=== PATIENT | male | born 1935 | race Caucasian/White ===

== ENCOUNTER 2019-05-05 14:45 | Outpatient (CLI) | payer OTHER, SELFPAY ==
--- NOTE | 2019-05-05 14:49 | US_ITS ---
WS: [id number] ULTRASOUND SOFT TISSUES RIGHT neck HISTORY: LYMPHADENOPATHY COMPARISON: None available. TECHNIQUE: 2-D and color Doppler imaging is submitted. Numerous hypoechoic masses are identified in the RIGHT neck in the region of the RIGHT submandibular gland. Largest mass measures 1.6 x 0.9 x 1.3 cm. There are a few septations and low-level echoes and some mild increased vascularity in the periphery. Loss of the normal architecture of lymph nodes. The se are adjacent or embedded within the periphery of the gland. US/US soft tissue head neck [id number] IMPRESSION: 1. Abnormal hypoechoic masses in the RIGHT neck adjacent to the submandibular gland. Highly suspicious for lymphadenopathy. 2. Recommend follow-up neck CT with IV contrast. Origin and extent of the prob able lymphadenopathy needs to be confirmed.
== END 2019-05-05 14:46 | disposition home or self-care (01) ==
PROVIDERS: Family Provider Nurse Practitioner; PCP Nurse Practitioner; Visit Provider Nurse Practitioner
DX: R22.1 Localized swelling, mass and lump, neck (principal)
CPT/HCPCS: 76536

== ENCOUNTER 2019-05-26 10:11 | Outpatient (CLI) | payer OTHER, SELFPAY ==
--- NOTE | 2019-05-26 10:30 | CT_ITS ---
WS: [id number] CT NECK TECHNIQUE: Contrast-enhanced CT of the neck with coronal and sagittal reformatted images. CLINICAL INFORMATION: MASS COMPARISON: Ultrasound May 05, 2019 DLP: 2975.[address] scans at [facility] use at least one of these dose optimization techniques: automat ed exposure control; mA and/or kV adjustment per patient size (includes targeted exams where dose is matched to clinical indication); or iterative reconstruction. FINDINGS: Ultrasound from May 05, 2019 reviewed. Right submandibular gland is normal in appearance. Normal le ft submandibular gland. No submandibular lymphadenopathy. Palpable marker overlying the right parotid gland with enhancing superficial parotid lesion measuring 6 1.8 x 1.1 CM. Left parotid gland is normal in appearance. Normal parapharyngeal fat. Normal epiglottis. Slight asymmetry in the right palatine tonsil with incr eased soft tissue. Recommend direct visualization. Mild asymmetry of the parapharyngeal fat. No cervical lymphadenopathy. Mastoid air cells well aerated. Mild mucosal thickening in the paranasal sinuses. Prior sternotomy. Aortic calcification. Emphysematous changes in the lung apices. Partially visualized intracranial contents are unremarkable. Tiny nodular thyroid with a small right greater t soriano left thyroid nodules. Moderate to severe right and at least moderate left ICA stenosis. Reduced ICA caliber at the skull ba se suggestive of high-grade stenosis. This can be further evaluated with ultrasound or CTA. CT/CT neck w con* [id number] IMPRESSION: 1. Enhancing right superficial parotid lesion deep to the palpable marker susp icious for parotid neoplasm. Recommend ENT consultation. 2. Submandibular glands are normal. No evidence of submandibular lymphadenopat hy. 3. Slight asymmetry involving the right palatine tonsil and right tongue base. Recommend direct visualization. 4. No cervical lymphadenopathy. 5. Small right greater than left thyroid nodules the largest in the right kimani uring 9 mm. 6. Advanced spondylitic changes cervical spine. 7. Moderate to severe right and at least moderate left ICA stenosis. Reduced I CA caliber at the skull base suggestive of high-grade stenosis. This can be fur ther evaluated with CTA.
[2019-05-26 10:55] LABS: Blood Urea Nitrogen 16 mg/dL (8-23)
[2019-05-26] MEDS: iohexol 300 mg/mL 100 mL Btl IV (11:15)
== END 2019-05-26 10:12 | disposition home or self-care (01) ==
PROVIDERS: Family Provider Nurse Practitioner; PCP Nurse Practitioner; Visit Provider Nurse Practitioner
DX: R22.1 Localized swelling, mass and lump, neck (principal); I89.8 Other specified noninfective disorders of lymphatic vessels and lymph nodes; E04.1 Nontoxic single thyroid nodule; I65.23 Occlusion and stenosis of bilateral carotid arteries
CPT/HCPCS: 70491; 82565; 84520; Q9967

== ENCOUNTER 2019-09-24 09:27 | Outpatient (CLI) | payer OTHER, SELFPAY ==
--- NOTE | 2019-09-24 09:52 | MR_ITS ---
WS: [id number] MRI NECK WITH CONTRAST TECHNIQUE: Noncontrast axial T1, axial T2 FSE fat sat, coronal T2 fat sat, coronal T1, coronal T1 fat sat, sagittal T2 fat sat, plus contrast enhanced coronal, sagittal, and axial T1 fat sat images obta ined. CLINICAL INFORMATION: LOCALIZED SWELLING, MASS AND LUMP NECK COMPARISON: CT neck May 26, 2019 ultrasound May 05, 2019 FINDINGS: Previously described enhancing lesion in the right superficial parotid gland is less prominent compar ed to the prior CT. Enhancing lesion measures approximately 8.3 x 5.7 mm with mild intraparotid ducta l dilatation. This appears less prominent and decreased in size compared to the prior CT. Some this m ay be due to differences in technique. Recommend correlation for interval therapy. Left parotid gland is normal. Normal submandibular glands. Previously described asymmetry involving t he right palatine tonsil is not seen today. Posterior nasopharynx is normal. Normal parapharyngeal fa t. Normal submandibular glands. Normal vallecula and epiglottis. Normal piriform sinuses. No evidence of supraglottic or glottic mass. Normal vocal cords. T2 hyperintense right thyroid nodule measuring 9 mm. No cervical lymphadenopathy. Chronic lacunar infarct right cerebellum. Poor flow in the right common carotid artery and ICA extending to the skull base appears occluded or nearly occluded. This can be f urther evaluated with CTA. Moderate spondylitic changes cervical spine. MR/MR orbit face neck wo/w* [id number] IMPRESSION: 1. Previously described right superficial parotid lesion appears smaller and l ess prominent today compared to the prior CT measuring 5 x 8 mm. Mild intraparo tid ductal dilatation. Recommend correlation with interval therapy. 2. Left parotid gland is normal. 3. Normal submandibular glands. No cervical lymphadenopathy. 4. 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 Recommend further e valuation with CTA.
== END 2019-09-24 09:28 | disposition home or self-care (01) ==
LOC: RADWPI 09:34
PROVIDERS: Family Provider Nurse Practitioner; PCP Nurse Practitioner; Visit Provider Specialist
DX: R22.1 Localized swelling, mass and lump, neck (principal); I65.21 Occlusion and stenosis of right carotid artery
CPT/HCPCS: 70543; A9579

== ENCOUNTER 2020-02-25 09:52 | Outpatient (CLI) | payer OTHER, SELFPAY ==
--- NOTE | 2020-02-25 10:31 | CT_ITS ---
WS: [id number] CT NECK WITH CONTRAST HISTORY: MASS RT SUBMANDIBULAR REGION TECHNIQUE: Contiguous 5 mm axial images are performed through the neck with intravenous contrast. Sag ittal and coronal reformats are also submitted. All CT scans at [facility] use at least o ne of these dose optimization techniques: automated exposure control; mA and/or kV adjustment per pat ient size (includes targeted exams where dose is matched to clinical indication); or iterative recons truction. CONTRAST: CONTRAST: Visipaque 320; 95 mL IV. DLP: 1738.06 mGycm COMPARISON: 05/26/2019 and 09/24/2019. Again noted is a very vague lobulated area in the superficial RIGHT parotid gland measuring 19 x 17 m m. There is very minimal peripheral enhancement. This corresponds to the palpable abnormality in the previously described abnormality by MRI and CT. No obvious progression. The submandibular glands are negative. No adenopathy. Torus tubarius and fossa of Rosenmuller and parapharyngeal fat are normal. Thyroid gland and salivary glands are normally enhancing with no masses. Advanced degenerative changes in the cervical spine, most significant at C2-3 and C3-4 and C4-5. Prio r CABG. Visualized portions of the skull base demonstrate no abnormalities. Orbits and globes are within norm al limits. No soft tissue masses. Visualized paranasal sinuses and mastoid air cells are normal. Lung apices are clear. CT/CT neck w con* [id number] IMPRESSION: 1. Persistent enlargement with a very minimally enhancing mass in the superfic ial RIGHT parotid measuring 19 x 17 mm. 2. No cervical chain adenopathy identified. 3. Consider further evaluation to exclude neoplasm. Ultrasound-guided biopsy i s recommended.
[2020-02-25] MEDS: iodixanol 320 mg/mL 100mL Btl IV (11:10)
== END 2020-02-25 09:53 | disposition home or self-care (01) ==
LOC: RADWPI 10:00
PROVIDERS: PCP Nurse Practitioner; Visit Provider Nurse Practitioner
DX: R22.1 Localized swelling, mass and lump, neck (principal)
CPT/HCPCS: 70491; Q9967

== ENCOUNTER → 2021-11-16 08:47 | Outpatient (BNVA) | payer OTHER, SELFPAY | PROVIDERS: PCP Nurse Practitioner; Visit Provider Internal Medicine | DX: I25.10 Atherosclerotic heart disease of native coronary artery without angina pectoris (principal); I10 Essential (primary) hypertension; E78.5 Hyperlipidemia, unspecified; Z95.1 Presence of aortocoronary bypass graft | CPT/HCPCS: 99214 ==

== ENCOUNTER 2022-01-08 10:32 | Inpatient (IN) | payer OTHER, SELFPAY ==
[2022-01-08] VITALS (19 sets, daily range): BP systolic 110–165; BP diastolic 64–92; PULSE 43–64; RESP 16–29; TEMP 37–37.9; O2SAT 89–93; BMI 26.5; BMI 27.4
--- NOTE | 2022-01-08 11:37 | W.ED.GENADLT ---
HPI - General Adult General: Chief complaint: General Medical Stated complaint: drLuis Alberto ask to provide him with fluids and blood poss Time Seen by Provider: 01/08/22 11:20 History of Present Illness: Patient comes in with cold symptoms including cough, congestion, fever, generalized weakness, shortness of breath for the past 5 days. States he was seen at the [facility] today and tested positive for flu A. States he also had a chest x-ray that was unremarkable. States he did labs and were concerned that his hemoglobin was low. They were also concerned that he is dehydrated and advised him to come to the emergency department for IV fluids and possible transfusion. The patient denies any history of low hemoglobin, or transfusion needs. However he states he was diagnosed with cancer 2 years ago and has elected not to do any treatments, and is therefore not on chemo or radiation. He denies blood in his stool, dark tarry stools, or any other source of bleeding. Associated symptoms: Deny chest pain, dyspnea, headache(s), nausea, rash, palpitations or vomiting Review of Systems Const: Reports: fever(s) and body aches Eyes: Denies: change in vision or blurry vision ENMT: Denies: throat pain or odynophagia Card: Denies: chest pain or palpitations Resp: Reports: productive cough; Denies: dyspnea GI: Denies: abdominal pain, nausea or vomiting : Denies: flank pain or dysuria Musc: Denies: neck pain or back pain Skin/Breast: Denies: rash or pruritus Neuro: Denies: headache(s) or numbness in extremities Psych: Denies: anxiety or change in appetite Endo: Denies: polyuria or excessive sweating [facility] PFSH: Medical History HTN (hypertension) Hyperlipidemia Family History Mother Stroke Sister Stroke Other Cancer Social History Smoking and tobacco status: never smoked Alcohol intake: never Household members: spouse Marital status: Current occupational status: retired Previous occupational history: TRUCKDRIVER Physical Exam Const: COMMON NORMALS: no acute distress, patient oriented x3 and alert HENMT: COMMON NORMALS: normocephalic and atraumatic HEAD & SCALP: normocephalic and atraumatic Eye: COMMON NORMALS: Equal, round and reactive pupils present and EOMs intact bilaterally PUPIL: Yes Equal, round and reactive pupils present OTHER: Bilateral glassy eyed appearance Neck/C-Spine: COMMON NORMALS: full ROM and supple Resp: COMMON NORMALS: normal respiratory effort, No retractions and No use of accessory muscles Cardio: COMMON NORMALS: regular rate and regular rhythm RATE: regular rate RHYTHM: regular rhythm GI: COMMON NORMALS: Normal to inspection, nondistended, normoactive bowel sounds present, Soft to palpation and non-tender PALPATION: Yes Soft to palpation Back/Pelvis: COMMON NORMALS: thoracic and lumbar spine normal to inspection and no thoracic nor lumbar tenderness Extremity: COMMON NORMALS: normal to inspection and full ROM Neuro: COMMON NORMALS: patient oriented x3 SENSORIUM/ORIENTATION: Yes alert Psych: COMMON NORMALS: mental status grossly normal and cooperative Skin: COMMON NORMALS: no rashes or lesions noted and no wounds GENERAL SKIN EXAM: no rashes or lesions noted Course Vital Signs: Vital signs: Vital Signs Temperature 100.3 F H 01/08/22 10:48 Pulse Rate 56 L 01/08/22 10:48 Respiratory Rate 16 01/08/22 10:48 Blood Pressure 157/76 01/08/22 10:48 Pulse Oximetry 91 01/08/22 10:48 Oxygen Delivery Me thod 01/08/22 10:48 MDM - General Adult Medical Decision Making Patient comes in with cold symptoms including cough, congestion, fever, generalized weakness, shortness of breath for the past 5 days. States he was seen at the [facility] today and tested positive for flu A. States he also had a chest x-ray that was unremarkable. States he did labs and were concerned that his hemoglobin was low. They were also concerned that he is dehydrated and advised him to come to the emergency department for IV fluids and possible transfusion. The patient denies any history of low hemoglobin, or transfusion needs. However he states he was diagnosed with cancer 2 years ago and has elected not to do any treatments, and is therefore not on chemo or radiation. He denies blood in his stool, dark tarry stools, or any other source of bleeding. On physical exam he has glassy eyed appearance, dry mucous membranes. His lungs are clear to auscultation. We will check labs, give IV fluids, and reassess. On reassessment I talked to the patient about the test results. We will continue IV fluid resuscitation. He is requiring supplemental oxygen at this time and is on 2 L to maintain his sats above 90%. I discussed the case with the hospitalist, and we will admit for further work-up and treatment. Lab Data 01/08/22 11:56 01/08/22 11:56 Laboratory Results WBC 4.3 10^3/uL (4.0-10.0) 01/08/22 11:56 RBC 3.81 10^6/uL (4.1-5.3) L 01/08/22 11:56 Hgb 12.8 g/dL (11.7-16.6) 01/08/22 11:56 Hct 38.5 % (42.0-52.0) L 01/08/22 11:56 MCV 101.0 fl (80-94) H 01/08/22 11:56 MCH 33.6 pg (28.0-34.0) 01/08/22 11:56 MCHC 33.2 g/dL (30.0-36.0) 01/08/22 11:56 RDW 13.1 % (12.1-15.1) 01/08/22 11:56 Plt Count 66 10^3/cmm (130-400) L 01/08/22 11:56 MPV 10.9 fL (7.4-10.4) H 01/08/22 11:56 Neut % (Auto) 63.4 % 01/08/22 11:56 Lymph % (Auto) 21.5 % 01/08/22 11:56 Randall % (Auto) 14.4 % 01/08/22 11:56 Eos % (Auto) 0.0 % 01/08/22 11:56 Baso % (Auto) 0.5 % 01/08/22 11:56 Neut # (Auto) 2.74 10^3/uL (1.8-7.7) 01/08/22 11:56 Lymph # (Auto) 0.9 10^3/uL (0.8-4.8) 01/08/22 11:56 Randall # (Auto) 0.6 10^3/uL (0.2-0.9) 01/08/22 11:56 Eos # (Auto) 0.0 10^3/uL (0.0-0.8) 01/08/22 11:56 Baso # (Auto) 0.0 10^3/uL (0.0-0.1) 01/08/22 11:56 Nucleated RBC % (auto) 0 % 01/08/22 11:56 Nucleated RBCs # 0.0 /100WBC 01/08/22 11:56 Specimen Type Arterial 01/08/22 12:55 Sample Site Radial, left 01/08/22 12:55 ABG pH 7.45 (7.35-7.45) 01/08/22 12:55 ABG pCO2 36.6 mmHg (35-45) 01/08/22 12:55 ABG pO2 66.5 mmHg (80.0-100.0) L 01/08/22 12:55 ABG HCO3 25.3 mmol/L (22-26) 01/08/22 12:55 ABG Base Excess 1.4 mmol/L (-2.0-2.0) 01/08/22 12:55 Bro Test Pos 01/08/22 12:55 Hematocrit 37.8 % (42-52) L 01/08/22 12:55 O2 Delivery Device Nc 01/08/22 12:55 O2 Liters/Min 2.0 % 01/08/22 12:55 FiO2 28.0 % 01/08/22 12:55 Barrelhead Inspector ID Monro 01/08/22 12:55 Sodium 135 mmol/L (136-145) L 01/08/22 11:56 Potassium 3.9 mmol/L (3.5-5.1) 01/08/22 11:56 Chloride 95 mmol/L (98-107) L 01/08/22 11:56 Carbon Dioxide 27 mmol/L (22-29) 01/08/22 11:56 Anion Gap 16.9 (5-19) 01/08/22 11:56 BUN 27 mg/dL (8-23) H 01/08/22 11:56 Creatinine 1.7 mg/dL (0.7-1.2) H 01/08/22 11:56 GFR Calculation Not Reportable 01/08/22 11:56 Glucose 120 mg/dL (65-115) H 01/08/22 11:56 Calculated Osmolality 286 mOsm/kg (285-295) 01/08/22 11:56 Calcium 10.0 mg/dL (8.5-10.5) 01/08/22 11:56 Total Bilirubin 0.7 mg/dL (0.15-1.2) 01/08/22 11:56 AST 32 U/L (0-40) 01/08/22 11:56 ALT 19 U/L (0-41) 01/08/22 11:56 Alkaline Phosphatase 60 U/L (40-130) 01/08/22 11:56 Total Protein 7.9 g/dL (6.6-8.7) 01/08/22 11:56 Albumin 4.1 g/dL (3.5-5.2) 01/08/22 11:56 Globulin 3.8 g/dL (1.3-4.6) 01/08/22 11:56 Blood Type O Negative 01/08/22 12:45 Rho(D) Type Negative 01/08/22 12:45 Antibody Screen Negative 01/08/22 12:45 Discharge Plan Discharge Patient Disposition: Admitted As Inpatient Clinical Impression: Influenza A, RENETTA (acute kidney injury), Dehydration, Hypoxia, AMS (altered mental status) Condition: Stable Prescriptions: No Action calcium carbonate [Calcium 600] 600 mg calcium (1,500 mg) tablet 600 mg PO DAILY alendronate [Fosamax] 70 mg tablet PO .WEEKLY hydrochlorothiazide 25 mg tablet 25 mg PO DAILY amlodipine 2.5 mg tablet 2.5 mg PO DAILY carvedilol 3.125 mg tablet 3.125 mg PO BID Rx Instructions: must administer with a meal/food losartan 50 mg tablet 50 mg PO DAILY aspirin [Aspir-81] 81 mg tablet,delayed release (DR/EC) 81 mg PO .every other day atorvastatin 40 mg tablet 40 mg PO DAILY Label Comments: 1/2 tab daily Referrals: Marisol Reza FNP [Primary Care Provider] - Coding Level of Care Code ED Offset Press Operator Apprentice for g Fwd Exam Comprehensive
[2022-01-08] MEDS: acetaminophen 325 mg Tablet 650 MG PO (11:51)
[2022-01-08] MEDS: sodium chloride 0.9% 1,000 ML 999 ML IV ×2 (12:05→14:49)
[2022-01-08 12:15] LABS: Basophils % 0.5 %; Hematocrit 38.5 % (42.0-52.0); Hemoglobin 12.8 g/dL (11.7-16.6); Lymphocytes # 0.9 10^3/uL (0.8-4.8); Lymphocytes % 21.5 %; Mean Corpuscular HGB Conc 33.2 g/dL (30.0-36.0); Mean Corpuscular Hemoglobin 33.6 pg (28.0-34.0); Mean Platelet Volume 10.9 fL (7.4-10.4); Monocytes # 0.6 10^3/uL (0.2-0.9); Monocytes % 14.4 %; Neutrophils # 2.74 10^3/uL (1.8-7.7); Neutrophils % 63.4 %; Nucleated Red Blood Cells % 0 %; Platelet Count 66 10^3/cmm (130-400); Red Blood Count 3.81 10^6/uL (4.1-5.3); Red Cell Distribution Width 13.1 % (12.1-15.1); White Blood Count 4.3 10^3/uL (4.0-10.0)
[2022-01-08 12:29] LABS: Slide Review Slide Review Perform
[2022-01-08 12:31] LABS: Alanine Aminotransferase 19 U/L (0-41); Albumin Level 4.1 g/dL (3.5-5.2); Alkaline Phosphatase 60 U/L (40-130); Anion Gap 16.9 (5-19); Aspartate Amino Transferase 32 U/L (0-40); Blood Urea Nitrogen 27 mg/dL (8-23); Carbon Dioxide 27 mmol/L (22-29); Chloride 95 mmol/L (98-107); Globulin 3.8 g/dL (1.3-4.6); Glucose 120 mg/dL (65-115); Osmolality Calculated 286 mOsm/kg (285-295); Potassium 3.9 mmol/L (3.5-5.1); Sodium 135 mmol/L (136-145); Total Bilirubin 0.7 mg/dL (0.15-1.2); Total Protein 7.9 g/dL (6.6-8.7)
[2022-01-08 13:08] LABS: ABG PCO2 36.6 mmHg (35-45); ABG PH Result 7.45 (7.35-7.45); Arterial Blood Gas Hematocrit 37.8 % (42-52); Base Excess ABG 1.4 mmol/L (-2.0-2.0); Blood Gas Allen Test Pos; Blood Gas Operator Identificat MONRO; Blood Gas Sample Site Radial, left; Blood Gas Sample Type Arterial; HCO3 ABG 25.3 mmol/L (22-26); Oxygen Device NC; PO2 ABG 66.5 mmHg (80.0-100.0)
--- NOTE | 2022-01-08 13:20 | XRR_ITS ---
PROCEDURE INFORMATION: Exam: XR Chest Exam date and time: 01/08/2022 2:26 PM Age: 87 years old Clinical indication: Shortness of breath; Prior surgery; Surgery type: Open heart; Additional info: SOB TECHNIQUE: Imaging protocol: Radiologic exam of the chest. Views: 1 view. COMPARISON: CT neck w con* [id number] 02/25/2020 11:02 AM FINDINGS: Lungs: Unremarkable. No consolidation. Pleural spaces: Unremarkable. No pleural effusion. No pneumothorax. Heart/Mediastinum: Possible dilatation of the aortic arch. No cardiomegaly. Bones/joints: Sternal sutures. XR/XR chest 1V portable [id number] IMPRESSION: No acute findings. 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
--- NOTE | 2022-01-08 14:34 | PC.NURSE ---
report called to CARLOS Patterson on med surg
--- NOTE | 2022-01-08 15:06 | P.HP_ITS ---
Providers/Chief Complaint Admitting Physician: Tiffany No MD Primary Care Provider: IVETH Jsesica Chief Complaint: dr. ask to provide him with fluids and blood poss History of Present Illness Ancelmo Santiago is a 87 year old male who presented to the emergency room with chief complaint of not feeling well. He had been seen at the [place] [facility]. Work- up there indicated that he was influenza a positive from information provided to me. He was told that he may need fluids and possibly blood and was sent to the emergency room for further evaluation. Repeat laboratory studies in the emergency room indicated normal hemoglobin but patient was found to have low platelet count. BUN and creatinine were elevated from prior values sometime ago. Patient was found to be hypoxemic with oxygen saturations in the mid to upper 80s. Family reported to ED staff that he has been confused at times. He had clinical improvement with placement of oxygen in the emergency room. He himself says he just has not felt like he usually does since or so. He was around a lot of people on . Did not receive a flu shot this season. Has not had pneumonia shot. Does not report any fevers but he has had runny nose, sore throat, cough predominantly nonproductive. Denies any GI symptoms. Does not describe any headache or muscle aches but says that his legs have felt rubbery and he has had difficulty getting around. Received IV fluids in the emergency room and request was made for admission given continued need for oxygen therapy, IV fluids along with advanced age. Chest x-ray imaging today show any acute cardiopulmonary findings. Patient does have a history of multiple myeloma that was diagnosed a couple of years ago. He opted not to have any treatment for this. Denies any recent issues with easy bruising or bleeding. No recent medication changes. Have no comparative hematological labs available in our system. Last BUN and creatinine from 2019 were 16/1.1. Review of Systems Const: Reports: fever(s) (Not sure when last fever was), fatigue and malaise; Denies: body aches Eyes: Denies: change in vision ENMT: Reports: throat pain, dry mouth and nasal congestion Card: Reports: lightheadedness and dyspnea on exertion; Denies: chest pain, irregular heart rhythm, edema, syncope or orthopnea Resp: Reports: dyspnea, productive cough (Rare), non-productive cough, change in phlegm color and chest congestion; Denies: pain on inspiration or hemoptysis GI: Reports: constipation; Denies: abdominal pain, nausea, vomiting, hematemesis or hematochezia : Reports: urinary hesitancy; Denies: difficulty urinating or hematuria Musc: Reports: muscle weakness and other (Legs rubbery ); Denies: extremity pain or muscle cramps Skin/Breast: Denies: rash or pruritus Neuro: Reports: weakness in extremities (General), difficulty walking and confusion; Denies: headache(s) Darshan/Lymph: Denies: easy bruising or easy bleeding Medications/Allergies Home Medications Medication Instructions Recorded Confirmed Last Taken Type alendronate 70 mg tablet (Fosamax) 70 mg PO Q7D 07/15/19 01/08/22 01/02/22 History amlodipine 2.5 mg tablet 2.5 mg PO QAM 07/15/19 01/08/22 01/08/22 History hydrochlorothiazide 25 mg tablet 25 mg PO DAILY 07/15/19 01/08/22 01/08/22 History losartan 50 mg tablet 75 mg PO DAILY 07/15/19 01/08/22 Unknown History atorvastatin 40 mg tablet 20 mg PO DAILY 11/16/19 01/08/22 Unknown History aspirin 81 mg tablet,delayed 81 mg PO EVERY OTHER DAY 01/08/22 01/08/22 01/08/22 History release calcium carbonate 500 mg calcium 1,000 mg PO BID 01/08/22 01/08/22 01/08/22 History (1,250 mg) chewable tablet calcium carbonate 600 mg-vitamin 2 tab PO DAILY 01/08/22 01/08/22 01/08/22 History D3 10 mcg (400 unit) tablet (Calcium 600 + D(3)) carvedilol 6.25 mg tablet 3.125 mg PO BID 01/08/22 01/08/22 01/08/22 History cyanocobalamin (vitamin B-12) 1,000 mcg IM Q30D 01/08/22 01/08/22 01/07/22 History 1,000 mcg/mL injection solution ferrous gluconate 324 mg (37.5 mg 324 mg PO QAM 01/08/22 01/08/22 01/08/22 History iron) tablet polyethylene glycol 3350 17 gram 17 g PO DAILY 01/08/22 01/08/22 Unknown History oral powder packet (Miralax) Allergies Allergy/AdvReac Type Severity Reaction Status Date / Time amoxicillin Allergy Unknown Unknown Verified 01/08/22 14:22 lisinopril AdvReac Intermediate COUGH Verified 01/08/22 14:22 PFSH Acute 2 PFSH: Medical History (Updated 01/08/22 @ 20:04 by Tiffany No MD) ASHD (arteriosclerotic heart disease) B12 deficiency BPH (benign prostatic hyperplasia) HTN (hypertension) Hyperlipidemia Iron deficiency Melanoma Multiple myeloma Has not received any form of treatment by informed choice Osteoporosis 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 Sinus bradycardia Surgical History (Updated 01/08/22 @ 19:44 by Tiffany No MD) History of Mohs micrographic surgery for skin cancer History of neck surgery due to skin cancer History of prostatectomy S/P CABG (coronary artery bypass graft) S/P hernia repair Family History Mother Stroke Sister Stroke Other Cancer Social History (Updated 01/08/22 @ 20:05 by Tiffany No MD) Smoking and tobacco status: former smoker Alcohol intake: current Alcohol intake frequency: holidays/special occasions only Alcohol use comment: Very rare use Substance/Drug Use: never Household members: spouse Marital status: service: Yes Current occupational status: retired Previous occupational history: TRUCKDRIVER Other PFSH information: Supplemental PFSH Information: Previously smoked only a small amount when he was in the service Vitals/I&O/Wt Last Vital Signs Temp 100.3 F H 01/08/22 10:48 Pulse 51 L 01/08/22 14:15 Resp 21 H 01/08/22 14:15 BP 117/66 01/08/22 14:15 Pulse Ox 92 01/08/22 14:15 O2 Del Method 01/08/22 10:48 Weight last 48 hrs Weight 83.915 kg Physical Exam Narrative: Constitutional: Awake and alert, both acutely ill-appearing and looks stated age, able to provide history, oxygen therapy in place HEENT: Evidence of prior surgery, variable pigmentation, hemangioma right restorationism area, otherwise normocephalic. Extraocular movements are intact, pupils are equally reactive, conjunctive a mildly erythematous but no drainage, nasopharynx with clear rhinorrhea, oropharynx with dry mucous membranes, no erythema or exudates Neck: Evidence of prior surgery but supple Respiratory: Scattered wheezes and crackles, has to pause when providing history, no retractions, decreased both bases Cardiovascular: Regular rhythm, heart sounds slightly obscured, no murmurs Abdomen: Soft, nontender, positive bowel sounds Extremities: No pitting edema though extremities are puffy, no calf tenderness Skin: Dry, variable pigmentation noted to face and neck, hemangioma right restorationism, no large areas of bruising or prominent petechiae noted Neuro: Speech clear, generally weak but handgrip is equal, no tremors noted Psych: Normal affect, currently oriented to person place and situation Data 01/08/22 11:56 01/08/22 11:56 Other Labs: Radiology Impressions Chest X-Ray 01/08/22 13:20 IMPRESSION: No acute findings. 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 Laboratory Results WBC 4.3 10^3/uL (4.0-10.0) 01/08/22 11:56 RBC 3.81 10^6/uL (4.1-5.3) L 01/08/22 11:56 Hgb 12.8 g/dL (11.7-16.6) 01/08/22 11:56 Hct 38.5 % (42.0-52.0) L 01/08/22 11:56 MCV 101.0 fl (80-94) H 01/08/22 11:56 MCH 33.6 pg (28.0-34.0) 01/08/22 11:56 MCHC 33.2 g/dL (30.0-36.0) 01/08/22 11:56 RDW 13.1 % (12.1-15.1) 01/08/22 11:56 Plt Count 66 10^3/cmm (130-400) L 01/08/22 11:56 MPV 10.9 fL (7.4-10.4) H 01/08/22 11:56 Neut % (Auto) 63.4 % 01/08/22 11:56 Lymph % (Auto) 21.5 % 01/08/22 11:56 [place] % (Auto) 14.4 % 01/08/22 11:56 Eos % (Auto) 0.0 % 01/08/22 11:56 Baso % (Auto) 0.5 % 01/08/22 11:56 Neut # (Auto) 2.74 10^3/uL (1.8-7.7) 01/08/22 11:56 Lymph # (Auto) 0.9 10^3/uL (0.8-4.8) 01/08/22 11:56 [place] # (Auto) 0.6 10^3/uL (0.2-0.9) 01/08/22 11:56 Eos # (Auto) 0.0 10^3/uL (0.0-0.8) 01/08/22 11:56 Baso # (Auto) 0.0 10^3/uL (0.0-0.1) 01/08/22 11:56 Nucleated RBC % (auto) 0 % 01/08/22 11:56 Nucleated RBCs # 0.0 /100WBC 01/08/22 11:56 Specimen Type Arterial 01/08/22 12:55 Sample Site Radial, left 01/08/22 12:55 ABG pH 7.45 (7.35-7.45) 01/08/22 12:55 ABG pCO2 36.6 mmHg (35-45) 01/08/22 12:55 ABG pO2 66.5 mmHg (80.0-100.0) L 01/08/22 12:55 ABG HCO3 25.3 mmol/L (22-26) 01/08/22 12:55 ABG Base Excess 1.4 mmol/L (-2.0-2.0) 01/08/22 12:55 Bro Test Pos 01/08/22 12:55 Hematocrit 37.8 % (42-52) L 01/08/22 12:55 O2 Delivery Device Nc 01/08/22 12:55 O2 Liters/Min 2.0 % 01/08/22 12:55 FiO2 28.0 % 01/08/22 12:55 Coal Deliverer ID [place] 01/08/22 12:55 Sodium 135 mmol/L (136-145) L 01/08/22 11:56 Potassium 3.9 mmol/L (3.5-5.1) 01/08/22 11:56 Chloride 95 mmol/L (98-107) L 01/08/22 11:56 Carbon Dioxide 27 mmol/L (22-29) 01/08/22 11:56 Anion Gap 16.9 (5-19) 01/08/22 11:56 BUN 27 mg/dL (8-23) H 01/08/22 11:56 Creatinine 1.7 mg/dL (0.7-1.2) H 01/08/22 11:56 GFR Calculation Not Reportable 01/08/22 11:56 Glucose 120 mg/dL (65-115) H 01/08/22 11:56 Calculated Osmolality 286 mOsm/kg (285-295) 01/08/22 11:56 Calcium 10.0 mg/dL (8.5-10.5) 01/08/22 11:56 Total Bilirubin 0.7 mg/dL (0.15-1.2) 01/08/22 11:56 AST 32 U/L (0-40) 01/08/22 11:56 ALT 19 U/L (0-41) 01/08/22 11:56 Alkaline Phosphatase 60 U/L (40-130) 01/08/22 11:56 Total Protein 7.9 g/dL (6.6-8.7) 01/08/22 11:56 Albumin 4.1 g/dL (3.5-5.2) 01/08/22 11:56 Globulin 3.8 g/dL (1.3-4.6) 01/08/22 11:56 Blood Type O Negative 01/08/22 12:45 Rho(D) Type Negative 01/08/22 12:45 Antibody Screen Negative 01/08/22 12:45 Respiratory viral testing indicated FLU A positive at outside clinic A&P Assessment and plan (1) Influenza A: Appears to be the primary diagnosis, right at 5 days since onset of symptoms, in a patient with advanced age and comorbidities as described. At higher risk of further complications given age, heart disease, weakening of immune system with multiple myeloma among others. Currently more viral than secondary bacterial appearing, but hypoxemia concerning. Does not appear to still be having fevers. (2) AMS (altered mental status): Secondary to hypoxemia plus or minus fever related to above Qualifiers: Altered mental status type: disorientation Qualified Code(s): R41.0 - Disorientation, unspecified (3) Hypoxia: Clinically appears secondary to acute respiratory issues related to influenza, not chronically on oxygen (4) Dehydration: Evident on clinical examination, mild to moderate (5) RENETTA (acute kidney injury): Secondary to decreased oral intake in the setting of continued utilization of diuretic therapy and ARB (6) Thrombocytopenia: No previous values for comparison. Has a history of multiple myeloma for which she has not received any treatment. No reported blood loss grossly. Is on some medicines that can impact platelet count such as aspirin and statin therapy. (7) Sinus bradycardia: This is a previously noted finding for patient. He is chronically on low-dose beta-blockade with a known history of coronary artery disease status post prior bypass surgery. Looking back at records heart has been documented as low as 50 bpm. Symptoms as described, not for the acute finding of influenza, could be secondary to episodes of more prominent bradycardia (8) HTN (hypertension): Looks to be potentially difficult to control chronically requiring 4 different medications to manage although most are at the lower end of dosing range. N ormotensive presently. Qualifiers: Hypertension type: primary hypertension Qualified Code(s): I10 - Essential (primary) hypertension (9) Hyperlipidemia: Chronically on statin therapy Qualifiers: Hyperlipidemia type: mixed hyperlipidemia Qualified Code(s): E78.2 - Mixed hyperlipidemia Plan History of BPH History of Multiple Myeloma not being treated by patient choice Advanced age Mild hyperglycemia without history of diabetes Inpatient admission IV fluids Follow-up renal function in the morning Continue oxygen therapy, weaning as able Incentive spirometer Breathing treatments if needed Tamiflu Hold home amlodipine, losartan and hydrochlorothiazide Add parameters to hold carvedilol for significant bradycardia Monitor vital signs for need to adjust treatment Hold home aspirin and statin therapy due to low platelets Repeat platelet count and H&H in the morning along with coagulation studies Continue home iron On monthly vitamin B12 injections outpatient Hold home alendronate due to risk of bleeding Supportive care otherwise Monitor closely for clinical change that would necessitate additional work-up and/or treatment Findings, concerns and plans were discussed with patient and he was given an opportunity to ask questions Currently anticipate discharge home with outpatient follow-up to primary care provider depending on clinical course Allow natural as per his wishes Attestations Medical Necessity Statement*: Anticipated stay greater than two midnights in an 87-year-old with influenza A currently requiring oxygen therapy and IV fluids. Other issues both chronically and acutely as noted above. At risk of further clinical decline without inpatient management and monitoring at this point in time. Coding Level of Care Code Acute Exercise Rider for Chg Fwd Diagnoses Influenza A J10.1 AMS (altered mental status) R41.0 Altered mental status type: disorientation Hypoxia R09.02 Dehydration E86.0 RENETTA (acute kidney injury) N17.9 Thrombocytopenia D69.6 Sinus bradycardia R00.1 HTN (hypertension) I10 Hypertension type: primary hypertension Hyperlipidemia E78.2 Hyperlipidemia type: mixed hyperlipidemia
[2022-01-08] MEDS: sodium chlor 0.9% + KCl 20 mEq 20 MEQ/1,000 ML BAG 75 MEQ IV (16:00)
[2022-01-08] MEDS: docusate sodium 100 mg Capsule PO (17:23)
[2022-01-08] MEDS: oseltamivir phosphate 75 mg Capsule PO (17:23)
[2022-01-08] MEDS: carvedilol 6.25 mg Tablet 3.125 MG PO (17:24)
[2022-01-09] VITALS (9 sets, daily range): BP systolic 104–133; BP diastolic 55–71; PULSE 43–99; RESP 16–20; TEMP 36.4–37.8; O2SAT 90–95
[2022-01-09 02:03] LABS: Basophils % 0.3 %; Hematocrit 32.5 % (42.0-52.0); Hemoglobin 10.3 g/dL (11.7-16.6); Lymphocytes # 0.9 10^3/uL (0.8-4.8); Lymphocytes % 22.5 %; Mean Corpuscular HGB Conc 31.7 g/dL (30.0-36.0); Mean Corpuscular Hemoglobin 33.6 pg (28.0-34.0); Mean Corpuscular Volume 105.9 fl (80-94); Mean Platelet Volume 11.1 fL (7.4-10.4); Monocytes # 0.4 10^3/uL (0.2-0.9); Monocytes % 9.6 %; Neutrophils # 2.65 10^3/uL (1.8-7.7); Neutrophils % 67.1 %; Nucleated Red Blood Cells % 0 %; Platelet Count 61 10^3/cmm (130-400); Red Blood Count 3.07 10^6/uL (4.1-5.3); Red Cell Distribution Width 12.9 % (12.1-15.1)
[2022-01-09 02:20] LABS: INR 0.94 (0.8-1.2)
[2022-01-09 02:22] LABS: Partial Thromboplastin Time 25.2 SECONDS (23.9-36.7)
[2022-01-09 02:33] LABS: Blood Urea Nitrogen 25 mg/dL (8-23); Calcium 8.3 mg/dL (8.5-10.5); Carbon Dioxide 23 mmol/L (22-29); Chloride 102 mmol/L (98-107); Glucose 111 mg/dL (65-115); Magnesium 1.6 mg/dL (1.7-2.3); Osmolality Calculated 283 mOsm/kg (285-295); Phosphorus 2.7 mg/dL (2.5-4.5); Sodium 134 mmol/L (136-145)
[2022-01-09 02:34] LABS: Creatinine Clr Calc Pharmacy 45.3042
[2022-01-09 02:38] LABS: Procalcitonin 0.12 ng/mL (0-0.5)
[2022-01-09 02:48] LABS: Creatine Phosphokinase 535 U/L (39-308)
[2022-01-09] MEDS: ferrous gluconate 324 mg Tablet PO (05:20)
[2022-01-09] MEDS: guaiFENesin 100 mg/5 mL UDC 10 mL 200 MG PO ×2 (05:25→14:40)
[2022-01-09] MEDS: docusate sodium 100 mg Capsule PO ×2 (09:52→18:15)
[2022-01-09] MEDS: oseltamivir phosphate 75 mg Capsule PO ×2 (09:52→18:15)
[2022-01-09] MEDS: carvedilol 6.25 mg Tablet 3.125 MG PO (09:53)
--- NOTE | 2022-01-09 11:39 | P.PN_ITS ---
Subjective Subjective: Patient was seen and examined this morning, overall he is doing better, had low-grade temp this morning of 100.1, denied any significant shortness of breath saturating well on room air. Medications: Medication Review Details: Generic Name Dose Route Start Last Admin Trade Name Freq PRN Reason Stop Dose Admin Carvedilol 3.125 mg 01/08/22 18:00 01/09/22 09:53 Carvedilol 6.25 Mg Tablet PO 3.125 mg BID LUCIO Administration Docusate Sodium 100 mg 01/08/22 18:00 01/09/22 09:52 Docusate Sodium 100 Mg Capsule PO 100 mg BID LUCIO Administration Ferrous Gluconate 324 mg 01/09/22 06:00 01/09/22 05:20 Ferrous Gluconat e 324 Mg Tablet PO 324 mg QAM LUCIO Administration Guaifenesin 200 mg 01/08/22 19:25 01/09/22 05:25 Guaifenesin 100 Mg/5 Ml Udc 10 Ml PO 200 mg Q4H PRN Administration COUGH AND CONGEST ION Potassium Chloride /Sodium Chloride 20 meq in 1,000 m ls @ 75 mls/hr 01/08/22 15:19 01/09/22 03:07 Sodium Chlor 0.9 % + Kcl 20 Meq IV 0 mls/hr .[id number] LUCIO Infusion Oseltamivir Phosph ate 75 mg 01/08/22 18:00 01/09/22 09:52 Oseltamivir Phos phate 75 Mg Capsul e PO 75 mg BID LUCIO Administration Polyethylene Glyco l 17 gm 01/09/22 09:00 01/09/22 09:54 Polyethylene Gly col 3350 Pkt 17 Gm PO Not Given DAILY LUCIO Vitals/I&O/Wt Last Vital Signs Temp 98.6 F 01/09/22 11:18 Pulse 46 L 01/09/22 11:18 Resp 17 01/09/22 11:18 BP 133/63 01/09/22 11:18 Pulse Ox 92 01/09/22 11:18 O2 Del Method 01/09/22 08:13 O2 Flow Rate 2 01/09/22 08:13 01/08/22 01/09/22 01/09/22 22:59 06:59 14:59 Intake Total 2738.75 / 2738.75 121.25 / 2860.00 200 / 200 Balance 2738.75 / 2738.75 121.25 / 2860.00 200 / 200 Weight last 48 hrs Weight 86.046 kg Weight 86.046 kg Weight 86.818 kg Weight 83.915 kg Physical Exam Resp: COMMON NORMALS: clear to auscultation bilaterally EFFORT & INSPECTION: Yes symmetric chest movement AUSCULTATION: clear to auscultation bilaterally Cardio: COMMON NORMALS: regular rate, regular rhythm, S1 normal heart sound present, S2 normal heart sound present, No gallops present (Cardio), No murmurs present (Cardio), No rub (Cardio) and Peripheral pulses 2+ throughout RATE: regular rate RHYTHM: regular rhythm HEART SOUNDS: S1 normal heart sound pr esent and S2 normal heart sound present PERIPHERAL PULSES: Peripheral pulses 2+ throughout GI: COMMON NORMALS: Normal to inspection, nondistended, normoactive bowel sounds present, Soft to palpation, non-tender, No hepatosplenomegaly present and no masses AUSCULTATION: Yes normoactive bowel sounds PALPATION: Yes Soft to palpation and Yes No hepatosplenomegaly present RECTAL EXAM: Yes deferred Extremity: COMMON NORMALS: no clubbing, cyanosis or edema and no pedal edema Data 01/09/22 01:30 01/09/22 01:30 A&P Assessment and plan (1) Influenza A: Appears to be the primary diagnosis, right at 5 days since onset of symptoms, in a patient with advanced age and comorbidities as described. At higher risk of further complications given age, heart disease, weakening of immune system with multiple myeloma among others. Currently more viral than secondary bacterial appearing, but hypoxemia concerning. Does not appear to still be having fevers. (2) AMS (altered mental status): Secondary to hypoxemia plus or minus fever related to above Qualifiers: Altered mental status type: disorientation Qualified Code(s): R41.0 - Disorientation, unspecified (3) Hypoxia: Clinically appears secondary to acute respiratory issues related to influenza, not chronically on oxygen (4) Dehydration: Evident on clinical examination, mild to moderate (5) RENETTA (acute kidney injury): Secondary to decreased oral intake in the setting of continued utilization of diuretic therapy and ARB (6) Thrombocytopenia: No previous values for comparison. Has a history of multiple myeloma for which she has not received any treatment. No reported blood loss grossly. Is on some medicines that can impact platelet count such as aspirin and statin therapy. (7) Sinus bradycardia: This is a previously noted finding for patient. He is chronically on low-dose beta-blockade with a known history of coronary artery disease status post prior bypass surgery. Looking back at records heart has been documented as low as 50 bpm. Symptoms as described, not for the acute finding of influenza, could be secondary to episodes of more prominent bradycardia (8) HTN (hypertension): Looks to be potentially difficult to control chronically requiring 4 different medications to manage although most are at the lower end of dosing range. Normotensive presently. Qualifiers: Hypertension type: primary hypertension Qualified Code(s): I10 - Essential (primary) hypertension (9) Hyperlipidemia: Chronically on statin therapy Qualifiers: Hyperlipidemia type: mixed hyperlipidemia Qualified Code(s): E78.2 - Mixed hyperlipidemia Plan 87-year-old male with past medical history of coronary artery disease hypertension, multiple myeloma, hypertension, thrombocytopenia was admitted with chief complaint of generalized weakness,which started after Thanksgiving. Currently being managed for. Assessment: Influenza A Fever RENETTA on CKD Dehydration Elevated CK Thrombocytopenia: History of multiple myeloma History of coronary artery disease Sinus bradycardia Hypomagnesemia Plan: X-ray chest: No acute findings Currently on Tamiflu will complete 5-day course Continue IV hydration Continue carvedilol DuoNebs as needed Monitor intake output charting Monitor BMP Avoid nephrotoxic's Monitor platelet count, no active bleeding, no petechiae no purpura Monitor electrolytes and accordingly replace. DuoNebs as needed Supplemental oxygen as needed CODE STATUS:AND Attestations Medical Necessity Statement*: Patient is still in hospital for management of influenza, RENETTA, dehydration , fever. Time Spent in Patient Care: Greater than 35 minutes (>than 50% of time spent in counselling and/or direct pt care on unit) . Coding Level of Care Code Acute Production Support Specialist for g Fwd Exam Expanded Problem Focused Diagnoses Influenza A J10.1 AMS (altered mental status) R41.0 Altered mental status type: disorientation Hypoxia R09.02 Dehydration E86.0 RENETTA (acute kidney injury) N17.9 Thrombocytopenia D69.6 Sinus bradycardia R00.1 HTN (hypertension) I10 Hypertension type: primary hypertension Hyperlipidemia E78.2 Hyperlipidemia type: mixed hyperlipidemia
[2022-01-09] MEDS: sodium chlor 0.9% + KCl 20 mEq 20 MEQ/1,000 ML BAG 75 MEQ IV (14:41)
[2022-01-09] MEDS: magnesium sulfate premix 2 GM/50 ML PIGGYBACK IV (15:51)
--- NOTE | 2022-01-09 18:33 | PC.NURSE ---
patients HR 44 and BP 105/55. Notified Dr. García. Verbal orders to hold
[2022-01-10] VITALS: BP 120/75; PULSE 87; RESP 18; TEMP 36.8; O2SAT 96
[2022-01-10 04:00] VITALS: BP 144/68; PULSE 40; RESP 15; TEMP 36.9; O2SAT 90
[2022-01-10 04:57] LABS: Basophils % 0.2 %; Eosinophils % 0.5 %; Hematocrit 33.5 % (42.0-52.0); Hemoglobin 11.2 g/dL (11.7-16.6); Lymphocytes # 1.5 10^3/uL (0.8-4.8); Lymphocytes % 37.9 %; Mean Corpuscular HGB Conc 33.4 g/dL (30.0-36.0); Mean Corpuscular Hemoglobin 33.9 pg (28.0-34.0); Mean Corpuscular Volume 101.5 fl (80-94); Mean Platelet Volume 11.2 fL (7.4-10.4); Monocytes # 0.5 10^3/uL (0.2-0.9); Monocytes % 12.1 %; Neutrophils # 1.99 10^3/uL (1.8-7.7); Neutrophils % 49.1 %; Nucleated Red Blood Cells % 0 %; Platelet Count 66 10^3/cmm (130-400); Red Cell Distribution Width 12.7 % (12.1-15.1); White Blood Count 4.1 10^3/uL (4.0-10.0)
[2022-01-10] MEDS: sodium chlor 0.9% + KCl 20 mEq 20 MEQ/1,000 ML BAG 75 MEQ IV (04:57)
[2022-01-10] MEDS: ferrous gluconate 324 mg Tablet PO (05:00)
[2022-01-10 05:21] LABS: Anion Gap 12.1 (5-19); Blood Urea Nitrogen 26 mg/dL (8-23); Calcium 8.3 mg/dL (8.5-10.5); Carbon Dioxide 23 mmol/L (22-29); Chloride 105 mmol/L (98-107); Glucose 99 mg/dL (65-115); Osmolality Calculated 287 mOsm/kg (285-295); Potassium 4.1 mmol/L (3.5-5.1); Sodium 136 mmol/L (136-145)
[2022-01-10 06:02] LABS: Creatine Phosphokinase 356 U/L (39-308)
[2022-01-10 08:00] VITALS: BP 145/72; PULSE 43; PULSE 46; RESP 16; TEMP 36.5; O2SAT 92; O2SAT 93
[2022-01-10] MEDS: docusate sodium 100 mg Capsule PO (10:01)
[2022-01-10] MEDS: oseltamivir phosphate 75 mg Capsule PO (10:01)
[2022-01-10] MEDS: carvedilol 6.25 mg Tablet 3.125 MG PO (10:02)
[2022-01-10 10:13] VITALS: BP 145/72; PULSE 46; RESP 16; TEMP 36.5; O2SAT 92
--- NOTE | 2022-01-10 10:42 | P.DS_ITS ---
Discharge Providers Date of Admission: 01/08/22 15:10 Date of Discharge: January 10, 2022 Attending Provider at Admission: Tiffany No MD Attending Provider at Discharge: Mariano García MD Primary Care Provider: IVETH Jessica Diagnoses at Discharge Discharge Diagnosis (1) Influenza A: Status: Acute (2) AMS (altered mental status): Status: Acute Qualifiers: Altered mental status type: disorientation Qualified Code(s): R41.0 - Disorientation, unspecified (3) Hypoxia: Status: Acute (4) Dehydration: Status: Acute (5) RENETTA (acute kidney injury): Status: Acute (6) Thrombocytopenia: Status: Acute (7) Sinus bradycardia: Status: Chronic (8) HTN (hypertension): Status: Chronic Qualifiers: Hypertension type: primary hypertension Qualified Code(s): I10 - Essential (primary) hypertension (9) Hyperlipidemia: Status: Chronic Qualifiers: Hyperlipidemia type: mixed hyperlipidemia Qualified Code(s): E78.2 - Mixed hyperlipidemia Reason for Visit Reason for Visit: ask to provide him with fluids and blood poss Hospital Course Hospital Course 87-year-old male with past medical history of coronary artery disease hypertension, multiple myeloma, hypertension, thrombocytopenia was admitted with chief complaint of generalized weakness,which started after Thanksgiving.? He was admitted for the management of influenza A, hypoxia, fever, prerenal RENETTA on CKD, dehydration, chronic thrombocytopenia, he was managed conservatively with, supplemental oxygen as needed Tamiflu, IV hydration, nephrotoxic's were avoided, BMP was monitored, CBC was monitored for platelet count there was no active bleeding petechiae or purpura, platelet count remained around its baseline. Overall patient responded well to above medical management and was discharged in stable condition to home, patient was saturating well on room air did not qualify for any home oxygen. Will follow his primary care physician as outpatient. Physical Exam Resp: COMMON NORMALS: clear to auscultation bilaterally EFFORT & INSPECTION: Yes symmetric chest movement AUSCULTATION: clear to auscultation bilaterally Cardio: COMMON NORMALS: regular rate, regular rhythm, S1 normal heart sound present, S2 normal heart sound present, No gallops present (Cardio), No murmurs present (Cardio), No rub (Cardio) and Peripheral pulses 2+ throughout RATE: regular rate RHYTHM: regular rhythm HEART SOUNDS: S1 normal heart sound present and S2 normal heart sound present PERIPHERAL PULSES: Peripheral pulses 2+ throughout GI: COMMON NORMALS: Normal to inspection, nondistended, normoactive bowel sounds present, Soft to palpation, non-tender, No hepatosplenomegaly present and no masses AUSCULTATION: Yes normoactive bowel sounds PALPATION: Yes Soft to palpation and Yes No hepatosplenomegaly present RECTAL EXAM: Yes deferred Extremity: COMMON NORMALS: no clubbing, cyanosis or edema and no pedal edema Discharge Data Studies Completed and Pending Completed Studies During Hospitalization Category Date Time Status XR chest 1V portable [id number] Stat Exams 01/08/22 13:20 Completed Radiology Impressions Chest X-Ray 01/08/22 13:20 IMPRESSION: No acute findings. 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 Laboratory Results WBC 4.1 10^3/uL (4.0-10.0) 01/10/22 04:33 RBC 3.30 10^6/uL (4.1-5.3) L 01/10/22 04:33 Hgb 11.2 g/dL (11.7-16.6) L 01/10/22 04:33 Hct 33.5 % (42.0-52.0) L 01/10/22 04:33 MCV 101.5 fl (80-94) H 01/10/22 04:33 MCH 33.9 pg (28.0-34.0) 01/10/22 04:33 MCHC 33.4 g/dL (30.0-36.0) D 01/10/22 04:33 RDW 12.7 % (12.1-15.1) 01/10/22 04:33 Plt Count 66 10^3/cmm (130-400) L 01/10/22 04:33 MPV 11.2 fL (7.4-10.4) H 01/10/22 04:33 Neut % (Auto) 49.1 % 01/10/22 04:33 Lymph % (Auto) 37.9 % 01/10/22 04:33 Archer % (Auto) 12.1 % 01/10/22 04:33 Eos % (Auto) 0.5 % 01/10/22 04:33 Baso % (Auto) 0.2 % 01/10/22 04:33 Neut # (Auto) 1.99 10^3/uL (1.8-7.7) 01/10/22 04:33 Lymph # (Auto) 1.5 10^3/uL (0.8-4.8) 01/10/22 04:33 Archer # (Auto) 0.5 10^3/uL (0.2-0.9) 01/10/22 04:33 Eos # (Auto) 0.0 10^3/uL (0.0-0.8) 01/10/22 04:33 Baso # (Auto) 0.0 10^3/uL (0.0-0.1) 01/10/22 04:33 Nucleated RBC % (auto) 0 % 01/10/22 04:33 Nucleated RBCs # 0.0 /100WBC 01/10/22 04:33 PT 12.80 SECONDS (12.1-14.9) 01/09/22 01:30 INR 0.94 (0.8-1.2) 01/09/22 01:30 APTT 25.2 SECONDS (23.9-36.7) 01/09/22 01:30 Specimen Type Arterial 01/08/22 12:55 Sample Site Radial, left 01/08/22 12:55 ABG pH 7.45 (7.35-7.45) 01/08/22 12:55 ABG pCO2 36.6 mmHg (35-45) 01/08/22 12:55 ABG pO2 66.5 mmHg (80.0-100.0) L 01/08/22 12:55 ABG HCO3 25.3 mmol/L (22-26) 01/08/22 12:55 ABG Base Excess 1.4 mmol/L (-2.0-2.0) 01/08/22 12:55 Bro Test Pos 01/08/22 12:55 Hematocrit 37.8 % (42-52) L 01/08/22 12:55 O2 Delivery Device Nc 01/08/22 12:55 O2 Liters/Min 2.0 % 01/08/22 12:55 FiO2 28.0 % 01/08/22 12:55 Remote Sensing Specialist ID Zoeyro 01/08/22 12:55 Sodium 136 mmol/L (136-145) 01/10/22 04:33 Potassium 4.1 mmol/L (3.5-5.1) 01/10/22 04:33 Chloride 105 mmol/L (98-107) 01/10/22 04:33 Carbon Dioxide 23 mmol/L (22-29) 01/10/22 04:33 Anion Gap 12.1 (5-19) 01/10/22 04:33 BUN 26 mg/dL (8-23) H 01/10/22 04:33 Creatinine 1.2 mg/dL (0.7-1.2) 01/10/22 04:33 GFR Calculation Not Reportable 01/10/22 04:33 Glucose 99 mg/dL (65-115) 01/10/22 04:33 Calculated Osmolality 287 mOsm/kg (285-295) 01/10/22 04:33 Calcium 8.3 mg/dL (8.5-10.5) L 01/10/22 04:33 Phosphorus 2.7 mg/dL (2.5-4.5) 01/09/22 01:30 Magnesium 1.6 mg/dL (1.7-2.3) L 01/09/22 01:30 Total Bilirubin 0.7 mg/dL (0.15-1.2) 01/08/22 11:56 AST 32 U/L (0-40) 01/08/22 11:56 ALT 19 U/L (0-41) 01/08/22 11:56 Alkaline Phosphatase 60 U/L (40-130) 01/08/22 11:56 Creatine Kinase 356 U/L (39-308) H* 01/10/22 04:33 Total Protein 7.9 g/dL (6.6-8.7) 01/08/22 11:56 Albumin 4.1 g/dL (3.5-5.2) 01/08/22 11:56 Globulin 3.8 g/dL (1.3-4.6) 01/08/22 11:56 Procalcitonin 0.12 ng/mL (0-0.5) 01/09/22 01:30 Blood Type O Negative 01/08/22 12:45 Rho(D) Type Negative 01/08/22 12:45 Antibody Screen Negative 01/08/22 12:45 Vitals Last Vital Signs Temp 97.7 F 01/10/22 10:13 Pulse 46 L 01/10/22 10:13 Resp 16 01/10/22 10:13 BP 145/72 01/10/22 10:13 Pulse Ox 92 01/10/22 10:13 O2 Del Method 01/10/22 08:00 O2 Flow Rate 2 01/09/22 08:13 Discharge Plan Discharge Patient Disposition: Home Condition: Stable Prescriptions: New oseltamivir 75 mg Capsule 75 mg PO BID 4 Days Qty: 8 0RF Continued alendronate [Fosamax] 70 mg tablet 70 mg PO Q7D Rx Instructions: on fri hydrochlorothiazide 25 mg tablet 25 mg PO DAILY amlodipine 2.5 mg tablet 2.5 mg PO QAM atorvastatin 40 mg tablet 20 mg PO DAILY Label Comments: 1/2 tab daily carvedilol 6.25 mg Tablet 3.125 mg PO BID aspirin 81 mg Tablet,Delayed Release (Dr/Ec) 81 mg PO EVERY OTHER DAY Miralax 17 gram Powder In Packet 17 g PO DAILY cyanocobalamin (vitamin B-12) 1,000 mcg/mL Solution 1,000 mcg IM Q30D calcium carbonate 500 mg calcium (1,250 mg) Tablet,Chewable 1,000 mg PO BID Calcium 600 + D(3) 600 mg-10 mcg (400 unit) Tablet 2 tab PO DAILY ferrous gluconate 324 mg (37.5 mg iron) Tablet 324 mg PO QAM Held losartan 50 mg tablet 75 mg PO DAILY Hold Instructions: Resume on 01/14/22. Discharge Orders: Discharge Order (Routine); Ordered 01/10/22 Ordered By: Mariano García Referrals: Marisol Reza FNP [Primary Care Provider] - 01/16/22 9:00 am (Previously scheduled appointment. ) Discharge Diet: Cardiac Patient Instructions: Dehydration - Adult, Dehydration (DC), Acute Kidney Injury (DC), Influenza (DC), Opioid Safety Discharge Attestations Time Spent in Discharge Care*: less than 30 min Quality Metrics Clinical Quality Measures [ No reported AMI, CVA or VTE this stay] Coding Level of Care Code Acute Chg FW DC note Diagnoses Influenza A J10.1 AMS (altered mental status) R41.0 Altered mental status type: disorientation Hypoxia R09.02 Dehydration E86.0 RENETTA (acute kidney injury) N17.9 Thrombocytopenia D69.6 Sinus bradycardia R00.1 HTN (hypertension) I10 Hypertension type: primary hypertension Hyperlipidemia E78.2 Hyperlipidemia type: mixed hyperlipidemia
== END 2022-01-10 11:50 | disposition home or self-care (01) | DRG 194 ==
LOC: ER 14:41 → MEDSURG 15:10
PROVIDERS: Admitting Provider Hospitalist; Emergency Provider Emergency Medicine; PCP Nurse Practitioner; Visit Provider Internal Medicine
DX: J10.1 Influenza due to other identified influenza virus with other respiratory manifestations (principal); C79.2 Secondary malignant neoplasm of skin; C90.00 Multiple myeloma not having achieved remission; N17.9 Acute kidney failure, unspecified; Z88.1 Allergy status to other antibiotic agents; I25.10 Atherosclerotic heart disease of native coronary artery without angina pectoris; Z95.1 Presence of aortocoronary bypass graft; N40.0 Benign prostatic hyperplasia without lower urinary tract symptoms; N18.9 Chronic kidney disease, unspecified; I12.9 Hypertensive chronic kidney disease with stage 1 through stage 4 chronic kidney disease, or unspecified chronic kidney disease; E78.2 Mixed hyperlipidemia; D50.9 Iron deficiency anemia, unspecified; M81.0 Age-related osteoporosis without current pathological fracture; Z85.820 Personal history of malignant melanoma of skin; Z90.79 Acquired absence of other genital organ(s); Z79.82 Long term (current) use of aspirin; E83.42 Hypomagnesemia; R73.9 Hyperglycemia, unspecified; D69.6 Thrombocytopenia, unspecified; E86.0 Dehydration; Z87.891 Personal history of nicotine dependence
CPT/HCPCS: 36415; 36600; 71045; 80048; 80053; 82550; 82803; 83735; 84100; 84145; 85025; 85610; 85730; 86850; 86900; 96360; 99285; J3475; J3480; J7030

== ENCOUNTER → 2022-04-18 09:59 | Outpatient (BNVA) | payer OTHER, SELFPAY | PROVIDERS: PCP Nurse Practitioner; Visit Provider Nurse Practitioner Family | DX: I48.91 Unspecified atrial fibrillation (principal); Z79.01 Long term (current) use of anticoagulants; Z87.891 Personal history of nicotine dependence; Z79.82 Long term (current) use of aspirin | CPT/HCPCS: 99213 ==

== ENCOUNTER → 2022-11-18 12:16 | Outpatient (BNVA) | payer OTHER, SELFPAY | PROVIDERS: PCP Nurse Practitioner; Visit Provider Internal Medicine | DX: I25.10 Atherosclerotic heart disease of native coronary artery without angina pectoris (principal); I10 Essential (primary) hypertension; E78.2 Mixed hyperlipidemia; Z87.891 Personal history of nicotine dependence; Z95.1 Presence of aortocoronary bypass graft | CPT/HCPCS: 99214 ==